=== PATIENT | female | born 1935 | race Caucasian/White ===

== ENCOUNTER 2016-12-08 00:36 | Inpatient (IN) | payer OTHER ==
[~2016-12-08] VITALS: Ht 157.5 cm; Wt 72.3 kg
[~2016-12-08 00:36] MED LIST: AMITRIPTYLINE H10 MG PO; APAP500 MG PO; BACLOFEN10 MG PO; CETIRIZINE HYDR10 MG PO; CO Q PO; CO Q10 PO; COL100 PO; ELECTROLYTE; ENERGY; FLECTOR1.3% TP; HYDROCORTISONE BUTYRATE 0.1% TP; LOVAZA1 G1 PO; MAXALT MLT PO; MULTI-VITAMINS1 TAB PO; MULTIGEN1 TAB PO; NOR10T PO; NORCO1 TA2 PO; OYSTER SHELL CA1 TA5 PO; PERCOCET1 TA2 PO; PHARMAC PO; POTASSIUM CHLORIDE PO; POTASSIUM CITR10 MEQ PO; PROBIOTIC; TRAZODO PO; ULT50 PO; XARELTO10 M1 PO; [UNRECOGNIZED DRUG - OTHER]; [UNRECOGNIZED DRUG - OTHER] PO; [UNRECOGNIZED DRUG - OTHER] PO; [UNRECOGNIZED DRUG - OTHER] PO
[2016-12-08 01:44] LABS: BASOPHIL % 0.1 % (0-2); PLATELET COUNT 207 x10^3mcL (130-400); RED CELL DISTRIBUTION WIDTH 13.6 % (11.5-14.5)
[2016-12-08 01:59] LABS: CALCIUM 8.5 mg/dL (8.5-10.1); CARBON DIOXIDE 26.4 mmol/L (21-32); CHLORIDE SERUM 102 mmol/L (98-107); CREATININE SERUM 1.5 mg/dL (0.6-1.0); GLUCOSE SERUM 118 mg/dL (74-106); POTASSIUM SERUM 3.3 mmol/L (3.5-5.1); SODIUM SERUM 138 mmol/L (136-145)
[2016-12-08 02:04] LABS: ALKALINE PHOSPHATASE 70 U/L (46-116); ALT/SGPT 20 U/L (14-59); AST/SGOT 20 U/L (15-37); BILIRUBIN TOTAL 0.44 mg/dL (0.20-1.00); TOTAL PROTEIN, SERUM 6.6 g/dL (6.4-8.2)
[2016-12-08 02:05] LABS: ALBUMIN 3.2 g/dL (3.4-5.0)
[2016-12-08 02:07] LABS: CK-MB 1.4 ng/mL (0-3.6)
[2016-12-08] MEDS ORDERED: APAP/HYDROCODON1 T13 PO (02:36)
[2016-12-08] MEDS ORDERED: DOXEPIN HCL10 MG PO (02:37)
[2016-12-08] MEDS ORDERED: SINGULAIR10 MG PO (02:38)
[2016-12-08] MEDS ORDERED: KLOR-CON M2020 MEQ PO (02:38)
[2016-12-08] MEDS ORDERED: PEPCID40 MG PO (02:38)
[2016-12-08] MEDS ORDERED: FLOVENT DI50 MCG/Ac1 IH (02:39)
[2016-12-08] MEDS ORDERED: BIAXIN FILMTAB500 MG PO (02:39)
[2016-12-08] MEDS ORDERED: PROPRANOLOL HCL10 MG PO (02:40)
[2016-12-08 04:24] VITALS: BP 120/52
[2016-12-08 04:27] VITALS: BP 120/52
[2016-12-08 05:21] LABS: T3 TOTAL 0.97 ng/mL
[2016-12-08 05:38] LABS: PHOSPHOROUS 4.5 mg/dL (2.5-4.9)
[2016-12-08 05:39] LABS: CHOLESTEROL/HDL RATIO 2.4
[2016-12-08 05:50] LABS: FREE T4 1.1 ng/dL (0.76-1.46); FREE THYROXINE INDEX 3.1 ug/dL (1.4-4.5); T4(THYROXINE) 7.9 ug/dL (4.7-13.3)
[2016-12-08 09:52] VITALS: BP 109/45
[2016-12-08 12:33] VITALS: BP 109/45
[2016-12-08 13:27] VITALS: BP 114/44
== END 2016-12-08 14:20 | disposition short-term general hospital (02) | DRG 535 ==
LOC: ED 00:36 → DU 02:48
PROVIDERS: Emergency Medicine; ADMIT Family Medicine
DX: S72.141A Displaced intertrochanteric fracture of right femur, initial encounter for closed fracture (principal); N17.0 Acute kidney failure with tubular necrosis; S52.501A Unspecified fracture of the lower end of right radius, initial encounter for closed fracture; E87.6 Hypokalemia; I34.0 Nonrheumatic mitral (valve) insufficiency; I36.1 Nonrheumatic tricuspid (valve) insufficiency; M19.041 Primary osteoarthritis, right hand; J84.10 Pulmonary fibrosis, unspecified; I10 Essential (primary) hypertension; D72.829 Elevated white blood cell count, unspecified; W17.89XA Other fall from one level to another, initial encounter; Z91.81 History of falling; Y93.89 Activity, other specified; Y92.012 Bathroom of single-family (private) house as the place of occurrence of the external cause
CPT/HCPCS: 83880; 84439; A4570; J2270; J3480; J7030

== ENCOUNTER 2017-10-14 18:18 | Inpatient (IN) | payer OTHER ==
[~2017-10-14] VITALS: Ht 157.5 cm; Wt 60.4 kg
[~2017-10-14 18:18] MED LIST changes: +APAP/HYDROCODON1 T13 PO; +BIAXIN FILMTAB500 MG PO; +DOXEPIN HCL10 MG PO; +FLOVENT DI50 MCG/Ac1 IH; +KLOR-CON M2020 MEQ PO; +PEPCID40 MG PO; +PROPRANOLOL HCL10 MG PO; +SINGULAIR10 MG PO
[2017-10-14 20:21] LABS: RED CELL DISTRIBUTION WIDTH 13.4 % (11.5-14.5)
[2017-10-14 20:26] LABS: BASOPHIL % 0 % (0-2); PLATELET COUNT 425 x10^3mcL (130-400)
[2017-10-14 20:33] LABS: ALKALINE PHOSPHATASE 59 U/L (46-116); ALT/SGPT 7 U/L (14-59); AST/SGOT 12 U/L (15-37); BILIRUBIN TOTAL 0.81 mg/dL (0.20-1.00); CALCIUM 8.9 mg/dL (8.5-10.1); CARBON DIOXIDE 30.2 mmol/L (21-32); CHLORIDE SERUM 101 mmol/L (98-107); CREATININE SERUM 1.9 mg/dL (0.6-1.0); GLUCOSE SERUM 128 mg/dL (74-106); LIPASE 76 IU/L (73-393); SODIUM SERUM 139 mmol/L (136-145)
[2017-10-14 20:35] LABS: AMYLASE 23 U/L (25-115); TOTAL PROTEIN, SERUM 5.6 g/dL (6.4-8.2)
[2017-10-14 20:36] LABS: POTASSIUM SERUM 2.9 mmol/L (3.5-5.1)
[2017-10-14 22:32] VITALS: BP 147/58
[2017-10-14 22:39] VITALS: Ht 157.5 cm; Wt 60.4 kg
[2017-10-14 22:44] LABS: CHOLESTEROL/HDL RATIO 2.3
[2017-10-15 05:29] VITALS: BP 127/51
[2017-10-15 06:36] LABS: BASOPHIL % 0.3 % (0-2); CALCIUM 8.1 mg/dL (8.5-10.1); CARBON DIOXIDE 31.6 mmol/L (21-32); CHLORIDE SERUM 105 mmol/L (98-107); CREATININE SERUM 1.7 mg/dL (0.6-1.0); GLUCOSE SERUM 114 mg/dL (74-106); MAGNESIUM 2.4 mg/dL (1.8-2.4); PHOSPHOROUS 3.1 mg/dL (2.5-4.9); PLATELET COUNT 369 x10^3mcL (130-400); RED CELL DISTRIBUTION WIDTH 13.7 % (11.5-14.5); SODIUM SERUM 142 mmol/L (136-145)
[2017-10-15 09:50] VITALS: BP 124/42
[2017-10-15 12:42] LABS: microscopic required? YES; urine erythrocyte NEGATIVE (NEGATIVE)
[2017-10-15 14:11] VITALS: BP 123/57
[2017-10-15 17:30] VITALS: BP 115/55
[2017-10-15 21:17] VITALS: BP 114/45
[2017-10-16 05:28] VITALS: BP 122/48
[2017-10-16 06:22] LABS: BASOPHIL % 0.1 % (0-2); PLATELET COUNT 370 x10^3mcL (130-400); RED CELL DISTRIBUTION WIDTH 13.6 % (11.5-14.5)
[2017-10-16 06:40] LABS: CALCIUM 8.2 mg/dL (8.5-10.1); CARBON DIOXIDE 26.9 mmol/L (21-32); CHLORIDE SERUM 104 mmol/L (98-107); CREATININE SERUM 1.4 mg/dL (0.6-1.0); GLUCOSE SERUM 80 mg/dL (74-106); MAGNESIUM 2.1 mg/dL (1.8-2.4); PHOSPHOROUS 1.9 mg/dL (2.5-4.9); POTASSIUM SERUM 3.9 mmol/L (3.5-5.1); SODIUM SERUM 140 mmol/L (136-145)
[2017-10-16 13:28] VITALS: BP 130/77
[2017-10-16 17:30] VITALS: BP 109/43
[2017-10-16 20:24] VITALS: BP 149/52
[2017-10-17 05:26] VITALS: BP 131/48
[2017-10-17 09:39] VITALS: BP 119/43
[2017-10-17] MEDS ORDERED: CARL PO (12:43)
[2017-10-17] MEDS ORDERED: PANTOPRAZOLE SO40 M1 PO (12:44)
[2017-10-17] MEDS ORDERED: LACL PO (12:45)
[2017-10-17] MEDS ORDERED: LEVAQUIN750 MG PO (12:54)
[2017-10-17] MEDS ORDERED: PROPRANOLOL HCL10 MG PO (13:12)
[2017-10-17] MEDS ORDERED: APAP/HYDROCODON1 T13 PO (13:17)
[2017-10-17] MEDS ORDERED: DOXEPIN HCL10 MG PO (13:17)
[2017-10-17] MEDS ORDERED: SINGULAIR10 MG PO (13:20)
[2017-10-17] MEDS ORDERED: FLOVENT DI50 MCG/Ac1 IH (13:20)
[2017-10-17] MEDS ORDERED: KLOR-CON M2020 MEQ PO (13:20)
[2017-10-17 13:31] VITALS: BP 119/43
[2017-10-17 14:22] VITALS: BP 119/66
[2017-10-17 14:28] VITALS: BP 119/66
== END 2017-10-17 15:20 | disposition home or self-care (01) | DRG 383 ==
LOC: ED 18:18 → DU 21:25
PROVIDERS: Emergency Medicine; General Practice; Internal Medicine Gastroenterology
PROC: 0DB68ZX Excision of Stomach, Via Natural or Artificial Opening Endoscopic, Diagnostic (ICD-10-PCS; principal; 2017-10-16 09:30)
DX: K26.9 Duodenal ulcer, unspecified as acute or chronic, without hemorrhage or perforation (principal); N17.0 Acute kidney failure with tubular necrosis; K25.9 Gastric ulcer, unspecified as acute or chronic, without hemorrhage or perforation; R11.10 Vomiting, unspecified; I10 Essential (primary) hypertension; K21.9 Gastro-esophageal reflux disease without esophagitis; E87.6 Hypokalemia; D64.9 Anemia, unspecified; Z68.26 Body mass index [BMI] 26.0-26.9, adult
CPT/HCPCS: 43235; 83880; C9113; J0696; J1200; J1610; J2250; J2310; J2405; J2765; J2916; J3010; J3480; J3490; J7030; J7040; J7042; Q0092